=== PATIENT | female | born 1945 | race Caucasian/White ===

== ENCOUNTER → 2018-08-16 12:51 | Outpatient (CLI) | payer OTHER, SELFPAY ==
--- NOTE | 2018-08-16 | DI.ECHO.S_ITS ---
[place] +---------+ [facility] +---------+ : : [address] : : : : [id number] : : : : Phone: [phone]---------+ Echocardiogram Report + + :Name: RAUL BHAKTA Study Date: 08/16/2018 Height: 68 in : :[facility] Weight: 190 lb : : Gender: Female BSA: 2.0 m2 : :: 1945 Age: 72 yrs BP: 140/76 mmHg: :Reason For Study: Aortic valve regurgitation : :Ordering Physician: Harmony : :Mikiwtruong Performed By: Nneka Mix : + + Interpretation Summary 1) Mildly enlarged left ventricle with normal systolic function (EF 55-60%). 2) Normal right ventricular size and function. 3) There is mild to moderate mitral regurgitation and mild to moderate aortic regurgitation. 4) Compared to the Echo done 09/23/2012, no significant change. Procedure: A two-dimensional transthoracic echocardiogram with color flow and Doppler was performed. The study quality was technically adequate. Comparison is made with the echocardiogram of 09/23/2012. The patient was in normal sinus rhythm during the exam. The patient had occasional PVCs during the exam. Left Ventricle: There is mild proximal septal thickening noted. The left ventricle is mildly dilated. The ejection fraction is estimated to be 55-60%. Diastolic parameters suggest a relaxation abnormality of the left ventricle, consistent with probable normal filling pressures. Right Ventricle: The right ventricle is normal in size and function. Atria: The left atrium is moderately dilated. Right atrial size is normal. There is no Doppler evidence for an interatrial shunt. Mitral Valve: The mitral valve leaflets appear borderline thickened, but open well. There is mild to moderate mitral regurgitation. Aortic Valve: The aortic valve is trileaflet. The aortic valve opens well. There is no aortic valve stenosis. There is mild to moderate aortic regurgitation. Tricuspid Valve: The tricuspid valve is normal in structure and function. There is trace tricuspid regurgitation. The right ventricular systolic pressure is estimated to be at least 34 mmHg based on an estimated right atrial pressure of 3 mm Hg. Pulmonic Valve: The pulmonic valve leaflets are thin and pliable; valve motion is normal. There is mild pulmonic regurgitation. Great Vessels: The aortic root is normal size. The ascending aorta is at the upper limits of normal in size. The aortic arch is normal in size. The IVC is of normal diameter and collapses greater than 50% with a sniff. This suggests a low right atrial pressure of 3 mm Hg. Pericardium/ Pleura There is no pericardial effusion. There is no pleural effusion. MMode/2D Measurements & Calculations LVIDd: 5.8 cm LVOT diam: 2.3 cm LVIDs: 3.8 cm Ao root diam: 3.2 cm FS: 34.1 % Aortic Jxn: 2.4 cm EPSS: 1.1 cm asc Aorta Diam: 3.5 cm IVSd: 0.95 cm Ao Arch Diam (Prox Trans): 2.8 cm LVPWd: 0.81 cm LV pablo. diameter/BSA (cm/m^2): 2.9 LV sys. diameter/BSA (cm/m^2): 1.9 LA A2 area: 23.0 cm2 RA long axis: 5.0 cm LA A4 area: 20.0 cm2 RA area: 14.6 cm2 LA length (vol): 5.2 cm RA vol: 36.4 ml LA vol: 75.4 ml RA : 18.2 ml/m2 LA vol index: 37.7 ml/m2 IVC diam: 1.3 cm RVD1 (basal): 3.2 cm RVD2 (mid): 2.5 cm TAPSE: 1.9 cm Doppler Measurements & Calculations Ao V2 max: 148.9 cm/sec LVOT Max Oz: 79.6 cm/sec Ao V2 mean: 107.4 cm/sec LV V1 max P.5 mmHg Ao max P.9 mmHg LV V1 VTI: 18.8 cm Ao mean P.2 mmHg KAYLA(I,D): 2.4 cm2 Ao V2 VTI: 32.8 cm KAYLA(V,D): 2.2 cm2 sev ratio: 0.57 KAYLA indexed to BSA (cm^2/m^2): 1.2 AI P1/2t: 484.3 msec AI dec slope: 270.1 cm/sec2 MV E max oz: 58.8 cm/sec TR max oz: 278.2 cm/sec MV A max oz: 102.6 cm/sec TR max P.0 mmHg MV E/A: 0.57 PA V2 max: 72.8 cm/sec Med Peak E' Oz: 3.2 cm/sec PA V2 mean: 46.6 cm/sec E/E' med: 18.6 PA mean P.98 mmHg Lat Peak E' Oz: 4.4 cm/sec PA Accel Time: 0.10 sec E/E' lat: 13.3 E/e' average: 16.0 MV dec time: 0.14 sec MV P1/2t: 39.3 msec MV P1/2t max oz: 59.0 cm/sec MVA(2t): 5.6 cm2 Reading Physician:02:31 PM
== END ==
PROVIDERS: PCP Family Medicine; Visit Provider Internal Medicine Cardiovascular Disease
DX: I08.1 Rheumatic disorders of both mitral and tricuspid valves (principal)
CPT/HCPCS: 93306

== ENCOUNTER → 2022-05-30 16:24 | Outpatient (CLI) | payer OTHER, SELFPAY ==
--- NOTE | 2022-05-30 | DI.US.S_ITS ---
PROCEDURE: US PERIPH VENOUS LOW EXTREM BI INDICATIONS: EDEMA ?DEEP VEIN THROMBOSIS TECHNIQUE: Real-time imaging, as well as color and pulse Doppler interrogation, were performed of the deep veins of both legs from the inguinal ligament to the popliteal fossa. COMPARISON: None. FINDINGS: Right: The common femoral, femoral and popliteal veins are normally compressible, and free of intraluminal thrombus. Color and pulse Doppler demonstrate normal phasic intravascular flow. There is normal augmentation response to distal compression maneuver. Left: The common femoral, femoral and popliteal veins are normally compressible, and free of intraluminal thrombus. Color and pulse Doppler demonstrate normal phasic intravascular flow. There is normal augmentation response to distal compression maneuver. Soft tissue edema can be seen involving the distal lower extremities. This study is limited by body habitus. IMPRESSION: Negative for deep venous thrombosis. Dictated by: Sudhir Garcia M.D. on 05/30/2022 at 16:44 Approved by: Sudhir Garcia M.D. on 05/30/2022 at 16:44
== END ==
PROVIDERS: Referring Provider Internal Medicine Cardiovascular Disease; Visit Provider Internal Medicine Cardiovascular Disease
DX: R60.9 Edema, unspecified (principal)
CPT/HCPCS: 93970

== ENCOUNTER → 2023-08-02 06:50 | Outpatient (CLI) | payer OTHER, SELFPAY ==
--- NOTE | 2023-08-02 | DI.ECHO.S_ITS ---
[place] +---------+ Hospital +---------+ : : [address] : : : : [id number] : : : : Phone: [phone] +---------+ Echocardiogram Report + + :Name: RAUL BHAKTA Study Date: 08/02/2023 Height: 67.5 in: :[facility] ReadingLocation: Weight: 170 lb : : Gender: Female BSA: 1.9 m2 : :: 1945 Age: 77 yrs BP: 144/85 mmHg: :Reason For Study: THORACIC AORTIC ECTASIA : :Ordering Physician: SENTHIL, : :JACLYN Performed By: Adelia Lawrence : :Referring: JACLYN NDIAYE : + + Interpretation Summary The left ventricle is normal in size. Left ventricular ejection fraction is estimated to be 55 +/- 5%. There has been no significant change in LVEF since the previous exam. The right ventricle is normal in size and function. There is mild to moderate mitral regurgitation. Previously mild MR. Compared to the prior echo study, there has been an increase in the severity of mitral regurgitation. There is mild aortic regurgitation. Compared to the prior echo study, there has been no change in the severity of aortic regurgitation. There is mild to moderate tricuspid regurgitation. Previously mild TR. Compared to the prior echo exam, there has been an increase in TR severity. The right ventricular systolic pressure is estimated to be at least 34 mmHg based on an estimated right atrial pressure of 3 mm Hg. Procedure: A two-dimensional transthoracic echocardiogram with color flow and Doppler was performed. The study quality was technically adequate. Comparison is made with the echocardiogram of 06/24/2022. The patient was in sinus rhythm with heart rates between 59-75 bpm during the exam. The patient had occasional PACs during the exam. Left Ventricle: The left ventricle is normal in size. Proximal septal thickening is noted. There is no echo evidence for significant left ventricular outflow tract obstruction. There is no thrombus. Left ventricular ejection fraction is estimated to be 55 +/- 5%. There has been no significant change since the previous exam. There are no focal wall motion abnormalities. MV E/A: 0.49 Med Peak E' Oz: 2.9 cm/sec E/E' med: 14.0. Right Ventricle: The right ventricle is normal in size and function. Atria: The left atrial size is normal. There has been no significant change since the previous study. Right atrial size is normal. There is no Doppler evidence for an interatrial shunt. Mitral Valve: There is mild mitral annular calcification. There is mild to moderate mitral regurgitation. Compared to the prior echo study, there has been an increase in the severity of mitral regurgitation. Aortic Valve: The aortic valve is trileaflet. The aortic valve opens well. There is discrete nodular thickening of the right coronary cusp. The aortic valve is mildly calcified. There is no aortic valve stenosis. There is mild aortic regurgitation. Compared to the prior echo study, there has been no change in the severity of aortic regurgitation. Tricuspid Valve: The tricuspid valve is normal. There is mild to moderate tricuspid regurgitation. The right ventricular systolic pressure is estimated to be at least 34 mmHg based on an estimated right atrial pressure of 3 mm Hg. Compared to the prior echo exam, there has been an increase in TR severity. Pulmonic Valve: The pulmonic valve leaflets are thin and pliable; valve motion is normal. There is mild pulmonic regurgitation. Great Vessels: The aortic root is normal size. The ascending aorta is at the upper limits of normal in size. The IVC is of normal diameter and collapses greater than 50% with a sniff. This suggests a low right atrial pressure of 3 mm Hg. Pericardium/ Pleura There is no pericardial effusion. There is no pleural effusion. MMode/2D Measurements & Calculations LVIDd: 5.3 cm LVOT diam: 2.3 cm LVIDs: 4.0 cm Ao root diam: 3.2 cm FS: 24.2 % asc Aorta Diam: 3.6 cm EPSS: 1.2 cm Ao Arch Diam (Prox Trans): 2.4 cm IVSd: 0.88 cm LVPWd: 0.95 cm LV pablo. diameter/BSA (cm/m^2): 2.8 LV sys. diameter/BSA (cm/m^2): 2.1 LA A2 area: 17.7 cm2 RA long axis: 4.9 cm LA A4 area: 17.0 cm2 RA area: 13.9 cm2 LA length (vol): 5.1 cm RA vol: 33.8 ml LA vol: 50.3 ml RA : 17.8 ml/m2 LA vol index: 26.5 ml/m2 IVC diam: 1.5 cm RVD1 (basal): 3.3 cm RVD2 (mid): 3.0 cm TAPSE: 1.6 cm Doppler Measurements & Calculations Ao V2 max: 118.2 cm/sec LVOT Max Oz: 69.1 cm/sec Ao V2 mean: 82.8 cm/sec LV V1 max P.9 mmHg Ao max P.6 mmHg LV V1 VTI: 16.6 cm Ao mean P.1 mmHg KAYLA(I,D): 2.4 cm2 Ao V2 VTI: 28.3 cm KAYLA(V,D): 2.4 cm2 sev ratio: 0.59 KAYLA indexed to BSA (cm^2/m^2): 1.3 AI P1/2t: 549.7 msec AI dec slope: 220.3 cm/sec2 MV E max oz: 40.3 cm/sec TR max oz: 279.0 cm/sec MV A max oz: 82.8 cm/sec TR max P.1 mmHg MV E/A: 0.49 PA V2 max: 74.5 cm/sec Med Peak E' Oz: 2.9 cm/sec PA V2 mean: 55.0 cm/sec E/E' med: 14.0 PA mean P.3 mmHg Lat Peak E' Oz: 4.5 cm/sec PA pr(Accel): 32.8 mmHg E/E' lat: 9.0 E/e' average: 11.5 MV dec time: 0.20 sec SV(LVOT): 68.1 ml Reading Physician:12:29 PM
--- NOTE | 2023-08-03 09:16 | DI.NM.S_ITS ---
DATE OF SERVICE: 08/02/2023 PROCEDURE: Pharmacological perfusion study. INDICATIONS: Known history of coronary artery disease with RCA stent, chest pain, shortness of breath. RADIOPHARMACEUTICAL: 27.2 millicurie technetium-99m Myoview IV was injected at stress and 10.7 millicurie technetium-99m Myoview IV was injected at rest. CARDIAC STRESS: The patient underwent IV Lexiscan perfusion study under the supervision of an attending staff. She remained hemodynamically stable. Resting blood pressure was 132/80. Baseline rhythm was sinus with poor R-wave progression. During stress, no convincing ischemic changes seen. Some isolated PVCs without any complex arrhythmias like ventricular tachycardia. No chest pain. Had minimal dyspnea. RAW DATA: Breast shadow seen. GATED STUDY: Resting LV ejection fraction 71% and stress LV ejection fraction 75% without any obvious wall motion abnormalities. Resting end- diastolic volume 107 mL. TID ratio 1.19, which is within normal limits. Lung/heart ratio 0.40, which is within normal limits. MYOCARDIAL PERFUSION SCAN: Stress supine, resting supine and stress prone images were compared to each other. Stress supine and resting supine images showed moderate size, mild to moderately decreased perfusion of anterior wall and distal anterior septum, which got completely resolved during stress prone images suggestive of breast tissue attenuation artifact. Summed stress score and summed rest score 0 and difference score 0. CONCLUSION: I will call this study a normal myocardial perfusion study with evidence of breast tissue attenuation artifact, which got resolved during stress prone images. Summed stress score and summed rest score as well as a difference score is 0. Preserved left ventricular function. Overall, low-risk myocardial perfusion scan. Denisse Freitas - YENIFER/frank/OPAL doc#: [id number]/job#: [id number] dd: 08/02/2023 17:01:00 dt: 08/02/2023 23:08:00 DICTATING MD/COPIES TO: Harmony Garcia MD COPIES MNE: ZA;
== END ==
PROVIDERS: Referring Provider Internal Medicine Cardiovascular Disease; Visit Provider Internal Medicine Cardiovascular Disease
DX: I25.10 Atherosclerotic heart disease of native coronary artery without angina pectoris (principal); I08.3 Combined rheumatic disorders of mitral, aortic and tricuspid valves; R07.9 Chest pain, unspecified; R06.02 Shortness of breath; Z95.5 Presence of coronary angioplasty implant and graft
CPT/HCPCS: 78452; 93017; 93306; A9502; J2785